=== PATIENT | female | born 1990 | race Caucasian/White ===

== ENCOUNTER 2022-01-08 22:55 | Inpatient (IN) | payer OTHER ==
[~2022-01-08] VITALS: Ht 165.1 cm; Wt 92.0 kg
[2022-01-08 23:35] LABS: BASOPHIL 0.7 % (0-2); EOSINOPHIL 0.4 % (0-5); HCT 40.8 % (37.0-47.0); HGB 13.1 g/dl (12.5-16.0); LYMPHOCYTE 17.3 % (15-48); MCH 29.7 pg (25.0-31.0); MCHC 32.1 g/dL (32.0-36.0); MCV 92.5 fL (78.0-100.0); MONOCYTE 6.5 % (0-12); MPV 9.3 fL (6.0-9.5); NEUTROPHIL 74.6 % (41-80); NRBC 0.2; PLT 324 K/uL (150-400); RBC 4.41 M/uL (4.20-5.40); RDW 18.4 % (11.5-14.0); WBC 9.4 K/uL (4.0-10.5)
[2022-01-08 23:46] LABS: BILIRUBIN 2+ mg/dL (NEGATIVE); BLOOD TRACE-INTACT Ery/uL (NEGATIVE); CLARITY CLOUDY (CLEAR); COLOR YELLOW (YELLOW); GLUCOSE (U) TRACE mg/dL (NORMAL); LEUKOCYTES 2+ Leu/uL (NEGATIVE); NITRITE POSITIVE (NEGATIVE); PROTEIN 2+ mg/dL (NEGATIVE); SPECIFIC GRAVITY >=1.030 (1.001-1.030); UROBILINOGEN >=8.0 mg/dL (0.2-1.0)
[2022-01-08 23:49] LABS: ALBUMIN 2.8 g/dL (3.4-5.0); BILIRUBIN - TOTAL 2.3 mg/dL (0.2-1.0); CREATININE 0.8 mg/dL (0.51-0.95); GLOBULIN (CALCULATION) 4.3 g/dL; POTASSIUM 3.3 mmol/L (3.5-5.1); TOTAL PROTEIN 7.1 g/dL (6.4-8.2)
[2022-01-08 23:53] LABS: AMORPHOUS URATES CRYSTALS LARGE; BACTERIA 3+; URINARY WBC TNTC
[2022-01-08 23:58] LABS: LACTIC ACID 2.6 mmol/L (0.4-1.9)
[2022-01-09 00:21] LABS: INFLUENZA A NAA NEGATIVE (NEGATIVE)
[2022-01-09 00:26] LABS: CORONAVIRUS 2019 SARS-COV-2 POSITIVE (NEGATIVE)
[2022-01-09 03:39] LABS: ECSTASY (MDMA) NEGATIVE (NEGATIVE); MARIJUANA (THC) NEGATIVE (NEGATIVE); METHADONE NEGATIVE (NEGATIVE)
[2022-01-09 03:40] LABS: AMPHETAMINES NEGATIVE (NEGATIVE); BARBITURATES NEGATIVE (NEGATIVE); OPIATES POSITIVE (NEGATIVE); OXYCODONE NEGATIVE (NEGATIVE)
[2022-01-09] MEDS ORDERED: DIGITEK250 MCG PO (05:42)
[2022-01-09] MEDS ORDERED: ALDACTONE25 MG PO (05:42)
[2022-01-09] MEDS ORDERED: ZESTRIL2.5 MG PO (05:43)
[2022-01-09] MEDS ORDERED: LASIX40 MG PO (05:43)
[2022-01-09] MEDS ORDERED: COREG 3.125M3.125 MG PO (05:43)
[2022-01-09 07:39] LABS: BASOPHIL 0.9 % (0-2); EOSINOPHIL 0.9 % (0-5); HCT 37.9 % (37.0-47.0); HGB 12.2 g/dl (12.5-16.0); LYMPHOCYTE 30.6 % (15-48); MCH 29.8 pg (25.0-31.0); MCHC 32.2 g/dL (32.0-36.0); MCV 92.7 fL (78.0-100.0); MONOCYTE 6.9 % (0-12); MPV 9.2 fL (6.0-9.5); NRBC 0; PLT 301 K/uL (150-400); RBC 4.09 M/uL (4.20-5.40); RDW 18.5 % (11.5-14.0); WBC 9.2 K/uL (4.0-10.5)
[2022-01-09 08:15] LABS: BUN/CREAT RATIO (CALC) 9.5 RATIO; CREATININE 0.84 mg/dL (0.51-0.95); MAGNESIUM 1.9 mg/dL (1.8-2.4); POTASSIUM 3.3 mmol/L (3.5-5.1)
[2022-01-09 08:21] LABS: LACTIC ACID 1.6 mmol/L (0.4-1.9); TOTAL CELL COUNT 100
[2022-01-09 08:27] LABS: NEUTROPHILS(M) 67 % (41-80)
[2022-01-09 08:28] LABS: EOSINOPHIL(M) 1 % (0-5); LYMPHOCYTE(M) 29 % (15-48); MONOCYTE(M) 3 % (0-12); PLATELET ESTIMATE NORMAL; PLATELET MORPHOLOGY NORMAL
--- NOTE | 2022-01-09 09:36 | NUR ---
Dietary screen automated - RD contacted primary nurse Amado today re: appropriateness of trigger. at this time, no nutritional issues noted. will follow if consult presents.
[2022-01-10 06:57] LABS: BASOPHIL 0.5 % (0-2); EOSINOPHIL 0.6 % (0-5); HCT 39.9 % (37.0-47.0); HGB 12.8 g/dl (12.5-16.0); LYMPHOCYTE 16.3 % (15-48); MCH 29.8 pg (25.0-31.0); MCHC 32.1 g/dL (32.0-36.0); MCV 92.8 fL (78.0-100.0); MPV 9.4 fL (6.0-9.5); NRBC 0; PLT 295 K/uL (150-400); RDW 18.6 % (11.5-14.0); WBC 10.8 K/uL (4.0-10.5)
[2022-01-10 07:20] LABS: ALBUMIN 2.5 g/dL (3.4-5.0); BILIRUBIN - TOTAL 2.3 mg/dL (0.2-1.0); BUN/CREAT RATIO (CALC) 9.1 RATIO; C-REACTIVE PROTEIN 6.4 mg/dL (<=0.90); CREATININE 0.99 mg/dL (0.51-0.95); GLOBULIN (CALCULATION) 3.8 g/dL; MAGNESIUM 1.7 mg/dL (1.8-2.4); POTASSIUM 3.3 mmol/L (3.5-5.1); TOTAL PROTEIN 6.3 g/dL (6.4-8.2)
[2022-01-10 11:49] LABS: LACTIC ACID 1.5 mmol/L (0.4-1.9)
[2022-01-11 05:41] LABS: HCT 39.1 % (37.0-47.0); HGB 12.5 g/dl (12.5-16.0); MCH 30.3 pg (25.0-31.0); MCV 94.9 fL (78.0-100.0); MPV 9.5 fL (6.0-9.5); RBC 4.12 M/uL (4.20-5.40); RDW 19.3 % (11.5-14.0); WBC 10.3 K/uL (4.0-10.5)
[2022-01-11 06:37] LABS: BUN/CREAT RATIO (CALC) 7.8 RATIO; CREATININE 1.53 mg/dL (0.51-0.95); POTASSIUM 4.3 mmol/L (3.5-5.1)
[2022-01-11] MEDS ORDERED: COREG 3.125M3.125 MG PO (09:19)
[2022-01-11] MEDS ORDERED: ALDACTONE25 MG PO (09:19)
[2022-01-11] MEDS ORDERED: AUGMENTIN 500-1 EACH PO (09:19)
[2022-01-11] MEDS ORDERED: ZESTRIL2.5 MG PO (09:19)
[2022-01-11] MEDS ORDERED: SACCHAROMYCES250 MG PO (09:19)
[2022-01-11] MEDS ORDERED: ELIQUIS5 MG PO (09:19)
[2022-01-11] MEDS ORDERED: DIGITEK250 MCG PO (09:19)
[2022-01-11] MEDS ORDERED: LASIX40 MG PO (09:19)
[2022-01-11] MEDS ORDERED: MAG-OXIDE 400M400 MG PO (09:19)
[2022-01-12 22:10] LABS: CHLAMYDIA TRACHOMATIS, NAA Positive (Negative); NEISSERIA GONORRHOEAE, NAA Negative (Negative)
== END 2022-01-11 11:38 | disposition home or self-care (01) | DRG 871 ==
LOC: FER 22:55 → FTCU 01-09 03:58
PROVIDERS: Emergency Medicine; Internal Medicine; Internal Medicine Cardiovascular Disease; ADMIT Family Medicine
PROC: 3E03329 Introduction of Other Anti-infective into Peripheral Vein, Percutaneous Approach (ICD-10-PCS; principal; 2022-01-08)
PROC: 8E0ZXY6 Isolation (ICD-10-PCS; 2022-01-09)
PROC: B24BZZZ Ultrasonography of Heart with Aorta (ICD-10-PCS; 2022-01-10)
DX: A41.89 Other specified sepsis (principal); I21.A1 Myocardial infarction type 2; U07.1 COVID-19; J12.82 Pneumonia due to coronavirus disease 2019; J96.01 Acute respiratory failure with hypoxia; I26.99 Other pulmonary embolism without acute cor pulmonale; J15.9 Unspecified bacterial pneumonia; I50.23 Acute on chronic systolic (congestive) heart failure; N17.9 Acute kidney failure, unspecified; I42.9 Cardiomyopathy, unspecified; N39.0 Urinary tract infection, site not specified; R65.20 Severe sepsis without septic shock; E87.6 Hypokalemia; E83.42 Hypomagnesemia; A59.01 Trichomonal vulvovaginitis; F15.10 Other stimulant abuse, uncomplicated; F17.200 Nicotine dependence, unspecified, uncomplicated; E66.9 Obesity, unspecified; F10.10 Alcohol abuse, uncomplicated; Z28.310 Unvaccinated for COVID-19; Z98.51 Tubal ligation status; Z90.49 Acquired absence of other specified parts of digestive tract; Z79.899 Other long term (current) drug therapy; Z68.33 Body mass index [BMI] 33.0-33.9, adult
CPT/HCPCS: 36415; 71275; 80048; 80053; 80305; 81001; 83605; 83735; 83880; 84145; 84484; 84702; 84703; 85025; 86140; 87040; 87210; 87491; 87591; 93005; J1650; J2270; J2543; J3360; J3370; J7050; U0002